=== PATIENT | male | born 1940 | race Caucasian/White ===

== ENCOUNTER 2021-02-01 21:04 | Emergency (ER) | payer MEDICARE | END 2021-02-02 00:05 | disposition home or self-care (01) | LOC: CSHERS 21:04 | DX: S05.11XA Contusion of eyeball and orbital tissues, right eye, initial encounter (principal); M54.2 Cervicalgia; I10 Essential (primary) hypertension; E78.5 Hyperlipidemia, unspecified; I25.10 Atherosclerotic heart disease of native coronary artery without angina pectoris; Z95.5 Presence of coronary angioplasty implant and graft; V00.811A Fall from moving wheelchair (powered), initial encounter | CPT/HCPCS: 70450; 70486; 72125 ==

== ENCOUNTER 2021-05-01 21:24 | Inpatient (IN) | payer MEDICARE ==
[2021-05-01] MEDS ORDERED: cefTRIAXone\\ROCEPHIN 2 GM VIAL ONE (22:18)
[2021-05-01 22:33] LABS: Hemoglobin 13.8 g/dL (13.5-17.5); Mean Corpuscular HGB CONC 32.7 g/dL (32.0-36.0); Mean Corpuscular Hemoglobin 29.9 pg (27.0-33.0); Mean Corpuscular Volume 91.3 fl (81.2-95.1); Mean Platelet Volume 10.6 fl (7.4-10.4); Platelet Count 137 10x3/uL (150-450); RBC Distribution Width 14.3 % (11.5-14.5); Red Blood Cell (RBC) Count 4.62 10x6/uL (4.32-5.72); White Blood Cell (WBC) Count 20.6 10x3/uL (3.5-10.5)
[2021-05-01 22:34] LABS: MDiff Complete? YES
[2021-05-01 22:39] LABS: PTT 23.3 sec (22.0-33.0); Prothrombin Time 11.3 sec (9.5-12.1)
[2021-05-01 22:44] LABS: ALT (SGPT) 25 U/L (8-55); AST (SGOT) 27 U/L (5-34); Alkaline Phosphatase 84 U/L (40-110); Anion Gap 17 mmol/L (10-20); BUN (Urea Nitrogen) 22 mg/dL (8.4-25.7); Bilirubin, Total 0.7 mg/dL (0.2-1.2); Calc. Creatinine Clearance 0 mL/min (70-130); Calcium 9.5 mg/dL (7.8-10.44); Carbon Dioxide 22 mmol/L (23-31); Chloride 103 mmol/L (98-107); Globulin 3.2 g/dL (2.4-3.5); Glucose 271 mg/dL (83-110); Lipase 16 U/L (8-78); Potassium 3.5 mmol/L (3.5-5.1); Protein, Total 7.2 g/dL (5.8-8.1); Sodium 138 mmol/L (136-145)
[2021-05-02 00:04] LABS: SARS-CoV-2 NAA Rapid Test DETECTED (NotDetected)
[2021-05-02 00:06] LABS: Bilirubin Neg (Negative); Blood, Urine 50 (Negative); Clarity Cloudy (Clear); Glucose, Urine (Dipstick) 100 mg/dL (Negative); Ketone, Urine Negative (Negative); Leukocyte 500 (Negative); Nitrite Negative (Negative); Protein, Urine (Dipstick) 100 mg/dl (Neg-Trace); Urobilinogen Normal mg/dL (Less than 2)
[2021-05-02 00:11] LABS: Bacteria/HPF 1+ HPF (None Seen); RBC/HPF 0-3 HPF (0-3); Squamous Epithelial 0-3 HPF (0-3); WBC/HPF Greater than 50 HPF (0-3)
[2021-05-02] MEDS ORDERED: HYDROcodone/Acetaminophen 5/325 mg Tablet PO PRN (01:03)
[2021-05-02] MEDS ORDERED: Guaifenesin DM 100-10/5 ML UDCUP PO PRN (01:03)
[2021-05-02] MEDS ORDERED: Calcium Carbonate 500 MG ChewTAB PO PRN (01:03)
[2021-05-02] MEDS ORDERED: Senokot S 8.6-50 MG TAB PO PRN (01:03)
[2021-05-02] MEDS ORDERED: Dextrose 5% in Water 1,000 ML IV PRN (01:10)
[2021-05-02] MEDS ORDERED: Dextrose 50% Abboject 50 ML SYRINGE SLOW IVP PRN (01:10)
[2021-05-02] MEDS ORDERED: HumaLOG 300 UNITS/3 ML VIAL SC PRN (01:10)
[2021-05-02 03:10] VITALS: BMI 41.1
[2021-05-02 03:14] LABS: Band 8 % (5-11); Lymphocytes 2 % (21-51); Monocytes 10 % (0-10); Neutrophil 78 % (42-75); Reactive Lymphocytes 2 % (0-10)
[2021-05-02 05:07] LABS: Lactic Acid 2.8 mmol/L (0.5-2.2)
[2021-05-02 05:26] LABS: Anion Gap 15 mmol/L (10-20); BUN (Urea Nitrogen) 23 mg/dL (8.4-25.7); Calc. Creatinine Clearance 95 mL/min (70-130); Carbon Dioxide 23 mmol/L (23-31); Chloride 105 mmol/L (98-107); Potassium 3.7 mmol/L (3.5-5.1); Sodium 139 mmol/L (136-145)
[2021-05-02 05:27] LABS: CRP (Inflammatory) 6.33 mg/dL (= or < 0.5); Calcium 8.7 mg/dL (7.8-10.44); Glucose 258 mg/dL (83-110)
[2021-05-02 05:40] LABS: Hemoglobin 12.1 g/dL (13.5-17.5); Mean Corpuscular Volume 93.6 fl (81.2-95.1); Platelet Count 139 10x3/uL (150-450); RBC Distribution Width 14.6 % (11.5-14.5); Red Blood Cell (RBC) Count 4.04 10x6/uL (4.32-5.72)
[2021-05-02 06:10] LABS: MDiff Complete? YES
[2021-05-02 06:15] LABS: Band 9 % (5-11); Lymphocytes 9 % (21-51); Monocytes 9 % (0-10); Neutrophil 69 % (42-75); Reactive Lymphocytes 3 % (0-10)
[2021-05-02 06:17] LABS: Mean Platelet Volume 10.6 fl (7.4-10.4)
[2021-05-02] MEDS: Famotidine 20 MG TAB PO SCH ×2 (09:37→21:06)
[2021-05-02] MEDS: Enoxaparin Sodium 40 MG/0.4 ML SYRINGE SC SCH (09:37)
[2021-05-02] MEDS: Aspirin 81 mg Enteric Coated Tablet PO SCH (09:37)
[2021-05-02] MEDS: Benzonatate 100 MG CAP PO SCH ×3 (09:37→21:06)
[2021-05-02] MEDS: Cholecalciferol 1,000 UNITS (25 MCG) TAB PO SCH (09:37)
[2021-05-02] MEDS: Rosuvastatin 10 MG TAB PO SCH (09:37)
[2021-05-02] MEDS: Ascorbic Acid 500 mg Chewable Tablet PO SCH (09:37)
[2021-05-02] MEDS: Zinc Gluconate 50 MG TAB PO SCH (09:37)
[2021-05-02] MEDS: Torsemide 20 MG TAB PO SCH ×2 (09:39→16:00)
[2021-05-02 09:50] LABS: SARS-CoV-2 IgG Ab Reactive (NonReactive); SARS-CoV-2 IgG Index 5.35 S/CO (< 1.40)
[2021-05-02 17:30] LABS: Hemoglobin A1c 8.5 % (4.0-6.0)
[2021-05-02 19:58] LABS: Strep pneumo Urine Ag NEGATIVE (NEGATIVE)
[2021-05-02 19:59] LABS: Legionella Urinary Ag Negative (Negative)
[2021-05-02] MEDS: cefTRIAXone\\ROCEPHIN 1 GM in Sodium Chloride 0.9% 100 ML IVPB SCH (22:14)
[2021-05-03] MEDS: Acetaminophen 325 MG TAB PO PRN ×2 (00:08→20:44)
[2021-05-03] MEDS: Famotidine 20 MG TAB PO SCH ×2 (08:49→20:44)
[2021-05-03] MEDS: Ascorbic Acid 500 mg Chewable Tablet PO SCH (08:49)
[2021-05-03] MEDS: Benzonatate 100 MG CAP PO SCH ×3 (08:49→20:44)
[2021-05-03] MEDS: Zinc Gluconate 50 MG TAB PO SCH (08:49)
[2021-05-03] MEDS: Enoxaparin Sodium 40 MG/0.4 ML SYRINGE SC SCH (08:49)
[2021-05-03] MEDS: Rosuvastatin 10 MG TAB PO SCH (08:49)
[2021-05-03] MEDS: Aspirin 81 mg Enteric Coated Tablet PO SCH (08:49)
[2021-05-03] MEDS: Cholecalciferol 1,000 UNITS (25 MCG) TAB PO SCH (08:49)
[2021-05-03] MEDS: Torsemide 20 MG TAB PO SCH ×2 (08:51→15:44)
[2021-05-03 09:59] LABS: #Eosinphils 0.2 10x3/uL (0.0-0.5); #Monocytes 0.8 10x3/uL (0.0-1.1); #Neutrophils 12.3 10x3/uL (1.5-8.4); %Basophils 0.3 % (0.0-2.0); %Eosinophils 1.5 % (0.0-6.0); %Lymphocytes 11.3 % (18.0-47.0); %Neutrophils 81.6 % (40.0-75.0); Hemoglobin 12.5 g/dL (13.5-17.5); Mean Corpuscular HGB CONC 32.4 g/dL (32.0-36.0); Mean Corpuscular Hemoglobin 30.2 pg (27.0-33.0); Mean Corpuscular Volume 93.2 fl (81.2-95.1); Mean Platelet Volume 10.8 fl (7.4-10.4); Platelet Count 141 10x3/uL (150-450); RBC Distribution Width 14.6 % (11.5-14.5); Red Blood Cell (RBC) Count 4.14 10x6/uL (4.32-5.72); White Blood Cell (WBC) Count 15.1 10x3/uL (3.5-10.5)
[2021-05-03 10:08] LABS: Anion Gap 13 mmol/L (10-20); BUN (Urea Nitrogen) 24 mg/dL (8.4-25.7); Calc. Creatinine Clearance 117 mL/min (70-130); Carbon Dioxide 25 mmol/L (23-31); Chloride 104 mmol/L (98-107); Glucose 195 mg/dL (83-110); Potassium 3.4 mmol/L (3.5-5.1); Sodium 139 mmol/L (136-145)
[2021-05-03] MEDS: cefTRIAXone\\ROCEPHIN 1 GM in Sodium Chloride 0.9% 100 ML IVPB SCH (22:00)
[2021-05-04 04:34] VITALS: TEMP 96.5
[2021-05-04 06:13] LABS: #Eosinphils 0.2 10x3/uL (0.0-0.5); #Monocytes 0.5 10x3/uL (0.0-1.1); #Neutrophils 4.8 10x3/uL (1.5-8.4); %Basophils 0.4 % (0.0-2.0); %Eosinophils 3.4 % (0.0-6.0); %Lymphocytes 20.8 % (18.0-47.0); %Monocytes 7.2 % (0.0-10.0); %Neutrophils 67.9 % (40.0-75.0); Hemoglobin 12.3 g/dL (13.5-17.5); Mean Corpuscular HGB CONC 33.2 g/dL (32.0-36.0); Mean Corpuscular Hemoglobin 30.1 pg (27.0-33.0); Mean Corpuscular Volume 90.9 fl (81.2-95.1); Mean Platelet Volume 10.4 fl (7.4-10.4); RBC Distribution Width 14.5 % (11.5-14.5); Red Blood Cell (RBC) Count 4.08 10x6/uL (4.32-5.72); White Blood Cell (WBC) Count 7.3 10x3/uL (3.5-10.5)
[2021-05-04 06:14] LABS: Anion Gap 12 mmol/L (10-20); BUN (Urea Nitrogen) 18 mg/dL (8.4-25.7); Calc. Creatinine Clearance 125 mL/min (70-130); Calcium 8.8 mg/dL (7.8-10.44); Carbon Dioxide 30 mmol/L (23-31); Chloride 105 mmol/L (98-107); Glucose 176 mg/dL (83-110); Platelet Count 129 10x3/uL (150-450); Potassium 3.6 mmol/L (3.5-5.1); Sodium 143 mmol/L (136-145)
[2021-05-04] MEDS: Enoxaparin Sodium 40 MG/0.4 ML SYRINGE SC SCH (09:20)
[2021-05-04] MEDS: Aspirin 81 mg Enteric Coated Tablet PO SCH (09:20)
[2021-05-04] MEDS: Rosuvastatin 10 MG TAB PO SCH (09:20)
[2021-05-04] MEDS: Benzonatate 100 MG CAP PO SCH (09:20)
[2021-05-04] MEDS: Ascorbic Acid 500 mg Chewable Tablet PO SCH (09:20)
[2021-05-04] MEDS: Torsemide 20 MG TAB PO SCH (09:20)
[2021-05-04] MEDS: Zinc Gluconate 50 MG TAB PO SCH (09:20)
[2021-05-04] MEDS: Cholecalciferol 1,000 UNITS (25 MCG) TAB PO SCH (09:21)
[2021-05-04] MEDS: Famotidine 20 MG TAB PO SCH (09:21)
[2021-05-04 12:10] VITALS: BP 139/70
== END 2021-05-04 11:44 | disposition home health service (06) | DRG 871 ==
LOC: CSHERS 21:24 → CSHTELE 05-02 01:00
PROVIDERS: ADMIT Student in an Organized Health Care Education/Training Program; ATTEND Internal Medicine
DX: A41.51 Sepsis due to Escherichia coli [E. coli] (principal); U07.1 COVID-19; E87.2 Acidosis; Z66 Do not resuscitate; N39.0 Urinary tract infection, site not specified; I12.9 Hypertensive chronic kidney disease with stage 1 through stage 4 chronic kidney disease, or unspecified chronic kidney disease; E11.22 Type 2 diabetes mellitus with diabetic chronic kidney disease; N18.2 Chronic kidney disease, stage 2 (mild); E78.2 Mixed hyperlipidemia; E11.65 Type 2 diabetes mellitus with hyperglycemia; D69.6 Thrombocytopenia, unspecified; I25.10 Atherosclerotic heart disease of native coronary artery without angina pectoris; Z88.2 Allergy status to sulfonamides; Z79.82 Long term (current) use of aspirin; Z79.899 Other long term (current) drug therapy; Z95.5 Presence of coronary angioplasty implant and graft; Z90.49 Acquired absence of other specified parts of digestive tract; Z98.890 Other specified postprocedural states; Z79.02 Long term (current) use of antithrombotics/antiplatelets; Z86.718 Personal history of other venous thrombosis and embolism
CPT/HCPCS: 0240U; 36415; 36416; 71045; 71260; 74177; 80048; 80053; 81003; 81015; 83036; 83605; 83690; 83880; 84145; 84443; 84484; 85025; 85379; 85610; 85730; 86140; 86769; 87040; 87077; 87086; 87186; 87449; 87899; 93005; 93010; 93306; 93970; J0696; J1650; J3490

== ENCOUNTER 2024-07-26 08:10 | Emergency (ER) | payer MEDICARE ==
[2024-07-26] MEDS ORDERED: traMADol HCl 50 MG TAB ONE (08:34)
[2024-07-26 08:41] LABS: Actual Bicarbonate (HCO3v) 27.8 mEq/L (22-28); Analyzer IN Cardio CS ER; Base Excess 2.6 mEq/L (-2 - +2); Chloride (VBG) 97 mmol/L (98-106); Critical Notified By: ASANCHEZ; Hematocrit-VBG 33 % (42.0-52.0); Hemoglobin (Hb) 11.2 g/dL (12.6-17.4); Potassium (VBG) 3.28 mmol/L (3.70-5.30); Puncture Site Other Site; RapidComm Collect By LAB.CB1; Sodium 141 mmol/L (133-146); pH (venous) 7.407 (7.32-7.43)
[2024-07-26 09:12] LABS: #Basophils Less than 0.03 10x3/uL (0.0-0.2); #Eosinophils Less than 0.03 10x3/uL (0.0-0.5); #Monocytes 0.76 10x3/uL (0.0-1.1); #Neutrophils 14.23 10x3/uL (1.5-8.4); %Basophils 0.1 % (0.0-2.0); %Eosinophils 0.1 % (0.0-6.0); %Lymphocytes 6.4 % (18.0-47.0); %Monocytes 4.7 % (0.0-10.0); %Neutrophils 87.7 % (40.0-75.0); Hematocrit 34.5 % (38.8-50.0); Hemoglobin 10.3 g/dL (13.5-17.5); Mean Corpuscular HGB CONC 29.9 g/dL (32.0-36.0); Mean Corpuscular Hemoglobin 26.5 pg (27.0-33.0); Mean Corpuscular Volume 88.7 fL (81.2-95.1); Mean Platelet Volume 9.3 fL (7.4-10.4); Platelet Count 265 10x3/uL (150-450); RBC Distribution Width 14.9 % (11.5-14.5); Red Blood Cell (RBC) Count 3.89 10x6/uL (4.32-5.72); White Blood Cell (WBC) Count 16.22 10x3/uL (3.5-10.5)
[2024-07-26] MEDS ORDERED: Piperacillin/Tazobactam 4.5 GM VIAL ONE (09:20)
[2024-07-26] MEDS ORDERED: LevoFLOXacin 750 mg/D5W 150 ml Premix Bag ONE (09:20)
[2024-07-26 09:33] LABS: ALT (SGPT) 31 U/L (Less than 45); AST (SGOT) 26 U/L (11-34); Albumin 2.8 g/dL (3.1-4.5); Alkaline Phosphatase 89 U/L (40-110); Anion Gap 16 mmol/L (10-20); BUN (Urea Nitrogen) 38 mg/dL (8.4-25.7); Bilirubin, Total 0.6 mg/dL (0.3-1.2); Calc. Creatinine Clearance 0 mL/min (70-130); Calcium 9.3 mg/dL (7.8-10.44); Carbon Dioxide 30 mmol/L (23-31); Chloride 98 mmol/L (98-107); Estimated GFR 61; Globulin 4.6 g/dL (2.4-3.5); Glucose 130 mg/dL (83-110); Potassium 3.1 mmol/L (3.5-5.1); Protein, Total 7.4 g/dL (5.8-8.1); Sodium 141 mmol/L (136-145)
[2024-07-26] MEDS ORDERED: Potassium Chloride 20 MEQ TAB ONE (09:48)
[2024-07-26] MEDS ORDERED: Potassium Bicarbonate/Cit Ac 20 MEQ TAB ONE (09:55)
[2024-07-26 10:26] LABS: Bilirubin Neg (Negative); Blood, Urine 250 (Negative); Clarity Slightly Cloudy (Clear); Glucose, Urine (Dipstick) Normal (Negative); Ketone, Urine Negative (Negative); Leukocyte 500 (Negative); Nitrite Negative (Negative); Protein, Urine (Dipstick) 100 mg/dl (Neg-Trace); Urobilinogen Normal mg/dL (Less than 2)
[2024-07-26 10:41] LABS: Bacteria/HPF 4+ HPF (None Seen); CAUTI Indications for Culture Pelvic or flank pain; Urine Culture Reflex Yes Yes; WBC/HPF Greater Than 50 HPF (0-3)
== END 2024-07-26 15:27 | disposition home or self-care (01) ==
LOC: CSHERS 08:10
DX: L89.94 Pressure ulcer of unspecified site, stage 4 (principal); N39.0 Urinary tract infection, site not specified; I48.91 Unspecified atrial fibrillation; I11.0 Hypertensive heart disease with heart failure; I50.9 Heart failure, unspecified; E11.9 Type 2 diabetes mellitus without complications; E78.00 Pure hypercholesterolemia, unspecified; Z79.899 Other long term (current) drug therapy; Z79.82 Long term (current) use of aspirin; Z95.0 Presence of cardiac pacemaker; Z79.01 Long term (current) use of anticoagulants; Z79.02 Long term (current) use of antithrombotics/antiplatelets
CPT/HCPCS: 71045; 80053; 81001; 82805; 83605; 85025; 87040; 87086; 87428; 94760; J1956; J2543; 36415; 96365; 96366; 96367